=== PATIENT | female | born 1950 | race Caucasian/White ===

== ENCOUNTER 2019-04-20 08:26 | Emergency (ER) | payer OTHER ==
[~2019-04-20] VITALS: Ht 152.4 cm; Wt 59.9 kg
[2019-04-20 08:34] VITALS: Ht 152.4 cm; Wt 59.9 kg
[2019-04-20 10:57] LABS: CALCIUM 9.1 mg/dL (8.5-10.1); CARBON DIOXIDE 25.2 mmol/L (21-32); CHLORIDE SERUM 97 mmol/L (98-107); CREATININE SERUM 0.8 mg/dL (0.6-1.0); GFR1 > 60 mL/min; GLUCOSE SERUM 238 mg/dL (74-106); SODIUM SERUM 133 mmol/L (136-145)
[2019-04-20 11:00] LABS: BASOPHIL % 0.7 % (0-2); PLATELET COUNT 157 x10^3mcL (130-400)
[2019-04-20 11:02] LABS: ALBUMIN 3.4 g/dL (3.4-5.0); ALKALINE PHOSPHATASE 94 U/L (46-116); ALT/SGPT 37 U/L (14-59); AST/SGOT 29 U/L (15-37); BILIRUBIN TOTAL 0.4 mg/dL (0.20-1.00); HDL CHOLESTEROL 41 mg/dL (40-60); LIPASE 192 IU/L (73-393); TOTAL PROTEIN, SERUM 7.1 g/dL (6.4-8.2); TRIGLYCERIDES 162 mg/dL (<150)
[2019-04-20 11:13] LABS: CHOLESTEROL 127 mg/dL (<200); CHOLESTEROL/HDL RATIO 3.1
[2019-04-20 11:27] VITALS: BP 149/63
[2019-04-20 11:29] LABS: T3 TOTAL 1.19 ng/mL
[2019-04-20 11:58] LABS: FREE T4 0.94 ng/dL (0.76-1.46); FREE THYROXINE INDEX 2.8 ug/dL (1.4-4.5); T4(THYROXINE) 8.2 ug/dL (4.7-13.3)
== END 2019-04-20 15:17 | disposition home or self-care (01) ==
LOC: ED 08:26
PROVIDERS: Specialist
DX: R00.2 Palpitations (principal); I10 Essential (primary) hypertension; E11.9 Type 2 diabetes mellitus without complications; E78.00 Pure hypercholesterolemia, unspecified; Z98.890 Other specified postprocedural states; Z88.2 Allergy status to sulfonamides
CPT/HCPCS: 36415; 83880; 84439; J7030; Q0092

== ENCOUNTER 2020-07-26 12:16 | Emergency (ER) | payer OTHER ==
[~2020-07-26] VITALS: Ht 152.4 cm; Wt 56.7 kg
[~2020-07-26 12:16] MED LIST: ADALAT CC60 MG PO; ATORVASTATIN CA40 M1 PO; CIPRO500 MG PO; GLIPIZIDE XL10 M1 PO; JANUMET XR1 TER PO; LISINOPRIL-HYDR1 TA3 PO
[2020-07-26 12:17] VITALS: BP 158/74; Ht 152.4 cm; Wt 56.7 kg
== END 2020-07-26 13:14 | disposition home or self-care (01) ==
LOC: ED 12:16
DX: R07.0 Pain in throat (principal); I10 Essential (primary) hypertension; E11.9 Type 2 diabetes mellitus without complications; E78.00 Pure hypercholesterolemia, unspecified; Z20.828 Contact with and (suspected) exposure to other viral communicable diseases; Z98.890 Other specified postprocedural states; Z88.2 Allergy status to sulfonamides
CPT/HCPCS: U0003